=== PATIENT | female | born 1955 | race African-American/Black ===

== ENCOUNTER 2018-01-04 14:05 | Emergency (ER) | payer OTHER ==
[~2018-01-04] VITALS: Ht 162.6 cm; Wt 74.8 kg
[2018-01-04 14:10] VITALS: Ht 162.6 cm; Wt 74.8 kg
[2018-01-04 15:14] LABS: BASOPHIL % 0.4 % (0-2); PLATELET COUNT 263 x10^3mcL (130-400)
[2018-01-04 15:15] LABS: RED CELL DISTRIBUTION WIDTH 15.6 % (11.5-14.5)
[2018-01-04 15:18] LABS: AMPHETAMINE QUAL UR POSITIVE (NEG <=1000)
[2018-01-04 15:28] LABS: ALKALINE PHOSPHATASE 84 U/L (46-116); ALT/SGPT 33 U/L (14-59); AST/SGOT 34 U/L (15-37); BILIRUBIN TOTAL 1.42 mg/dL (0.20-1.00); CALCIUM 9.5 mg/dL (8.5-10.1); CARBON DIOXIDE 27.9 mmol/L (21-32); CHLORIDE SERUM 100 mmol/L (98-107); CREATININE SERUM 1.3 mg/dL (0.6-1.0); GFR1 44 mL/min; GLUCOSE SERUM 130 mg/dL (74-106); SODIUM SERUM 139 mmol/L (136-145); TOTAL PROTEIN, SERUM 8.4 g/dL (6.4-8.2)
[2018-01-04 15:29] LABS: POTASSIUM SERUM 2.9 mmol/L (3.5-5.1)
[2018-01-04 19:57] VITALS: BP 121/83
== END 2018-01-04 19:57 | disposition home or self-care (01) ==
LOC: ED 14:05
PROVIDERS: Emergency Medicine
DX: T43.625A Adverse effect of amphetamines, initial encounter (principal); Y92.89 Other specified places as the place of occurrence of the external cause
CPT/HCPCS: 36415; G0480